=== PATIENT | female | born 1990 | race Caucasian/White ===

== ENCOUNTER → 2017-11-15 | Outpatient (CLI) | payer MEDICAID ==
[2017-11-15 18:37] LABS: BASO # 0.1 10^3/uL (0.0-0.2); BASO % 0.7 % (0.0-1.0); EOS # 0.3 10^3/uL (0.0-0.50); HEMATOCRIT 43.5 % (36.0-47.0); HEMOGLOBIN 14.4 g/dl (12.0-15.5); IMMATURE GRANULOCYTE % 0.4 % (0-3.0); LYMPH # 2.3 10^3/uL (1.5-6.5); LYMPH % 23.6 % (24.0-44.0); MEAN CORPUSCULAR HEMOGLOBIN 31.4 pg (27.0-33.0); MEAN CORPUSCULAR HGB CONC 33.1 g/dl (32.0-36.5); MONO % 10.1 % (0.0-5.0); NEUTROPHILS % 62.2 % (36.0-66.0); PLATELET COUNT, AUTOMATED 309 10^3/uL (150-450); RED BLOOD COUNT 4.58 10^6/uL (4.00-5.40); RED CELL DISTRIBUTION WIDTH 12.3 % (11.5-14.5); WHITE BLOOD COUNT 9.6 10^3/uL (4.0-10.0)
[2017-11-15 20:52] LABS: IMMUNOGLOBULIN E 20.6 IU/ML (<100)
[2017-11-15 21:13] LABS: RUBELLA IgG QUALITATIVE IMMUNE (IMMUNE)
[2017-11-19 14:38] LABS: ANTI TETANUS ANTIBODY 6.47 IU/mL (<0.10); STREP PNEUMO TYPE 1 4.6 ug/mL (>1.3); STREP PNEUMO TYPE 12F <0.1 ug/mL (>1.3); STREP PNEUMO TYPE 14 1.7 ug/mL (>1.3); STREP PNEUMO TYPE 18C 0.3 ug/mL (>1.3); STREP PNEUMO TYPE 19A 7.5 ug/mL (>1.3); STREP PNEUMO TYPE 19F 0.4 ug/mL (>1.3); STREP PNEUMO TYPE 23F <0.1 ug/mL (>1.3); STREP PNEUMO TYPE 3 5.4 ug/mL (>1.3); STREP PNEUMO TYPE 4 <0.1 ug/mL (>1.3); STREP PNEUMO TYPE 6B 5.7 ug/mL (>1.3); STREP PNEUMO TYPE 7F 0.2 ug/mL (>1.3); STREP PNEUMO TYPE 8 1.3 ug/mL (>1.3); STREP PNEUMO TYPE 9N 0.6 ug/mL (>1.3); STREP PNEUMO TYPE 9V 0.8 ug/mL (>1.3)
== END ==
LOC: M SMT 15:56
DX: J31.0 Chronic rhinitis (principal); J32.9 Chronic sinusitis, unspecified; D84.9 Immunodeficiency, unspecified
CPT/HCPCS: 82785